=== PATIENT | female | born 1970 | race Caucasian/White ===

== ENCOUNTER → 2016-05-19 | Outpatient (REF) | payer OTHER ==
[~2016-05-19] MED LIST: BUSP10TA PO; EFFE150C PO; LIPI20TA PO; LOSA50TA20 PO; SERO200T PO; UROCTAB2 PO
[2016-05-19 12:31] LABS: CONTROL LINE HCG INT CTR LINE PRESENT
[2016-05-19 12:49] LABS: INR 0.86
== END | disposition home or self-care (01) ==
LOC: M LABDRWAD 12:15
PROVIDERS: ATTEND Physical Medicine & Rehabilitation
DX: Z01.812 Encounter for preprocedural laboratory examination (principal); M50.320 Other cervical disc degeneration, mid-cervical region, unspecified level

== ENCOUNTER → 2016-07-07 | Outpatient (REF) | payer OTHER | LOC: M LABDRWAD 12:36 | PROVIDERS: ATTEND Physical Medicine & Rehabilitation | DX: Z01.812 Encounter for preprocedural laboratory examination (principal); M50.220 Other cervical disc displacement, mid-cervical region, unspecified level ==

== ENCOUNTER → 2016-09-05 | Outpatient (REF) | payer OTHER | LOC: M LAB REF 17:13 | PROVIDERS: ATTEND Surgery | DX: R05 Cough (principal) ==

== ENCOUNTER → 2017-05-02 | Outpatient (REF) | payer OTHER | LOC: M LAB REF 19:00 | DX: M50.30 Other cervical disc degeneration, unspecified cervical region (principal) ==

== ENCOUNTER 2017-08-10 18:08 | Emergency (ER) | payer OTHER, MEDICAID ==
[2017-08-10] MEDS: IPRATROPIUM 0.5MG/ALBUTEROL 2.5MG INH SOL UD 3ML (DUONEB)(J7620) NEB (19:24)
[2017-08-10] MEDS: ASPIRIN 81 MG CHEW TABLET PO (19:41)
[2017-08-10 19:42] LABS: BASO # 0.1 10^3/uL (0.0-0.2); BASO % 0.7 % (0.0-1.0); EOS # 0.1 10^3/uL (0.0-0.50); EOS % 0.6 % (0.0-3.0); HEMATOCRIT 46.1 % (36.0-47.0); HEMOGLOBIN 15.6 g/dl (12.0-15.5); IMMATURE GRANULOCYTE % 0.4 % (0-3.0); LYMPH # 2.8 10^3/uL (1.5-4.5); LYMPH % 21.9 % (24.0-44.0); MEAN CORPUSCULAR HEMOGLOBIN 29.4 pg (27.0-33.0); MEAN CORPUSCULAR HGB CONC 33.8 g/dl (32.0-36.5); MEAN CORPUSCULAR VOLUME 86.8 fl (80.0-96.0); MONO # 0.9 10^3/uL (0.0-0.8); MONO % 6.7 % (0.0-5.0); NEUTROPHILS # 8.9 10^3/uL (1.8-7.7); NEUTROPHILS % 69.7 % (36.0-66.0); PLATELET COUNT, AUTOMATED 330 10^3/uL (150-450); RED BLOOD COUNT 5.31 10^6/uL (4.00-5.40); RED CELL DISTRIBUTION WIDTH 13.1 % (11.5-14.5); WHITE BLOOD COUNT 12.7 10^3/uL (4.0-10.0)
[2017-08-10] MEDS: ATENOLOL 25 MG TAB PO (19:42)
[2017-08-10] MEDS ORDERED: ISOVUE-370 76% 100ML VIAL (Q9967) As Ordered (20:11)
[2017-08-10 20:14] LABS: ANION GAP 7 MEQ/L (8-16); BLOOD UREA NITROGEN 10 MG/DL (7-18); CALCIUM LEVEL 9.1 MG/DL (8.5-10.1); CARBON DIOXIDE LEVEL 27 MEQ/L (21-32); CHLORIDE LEVEL 109 MEQ/L (98-107); CPK CREATINE PHOSPHOKINASE 82 U/L (26-192); CREATININE FOR GFR 0.62 MG/DL (0.55-1.30); GLOMERULAR FILTRATION RATE > 60.0 (>58); GLUCOSE, FASTING 97 MG/DL (70-100); POTASSIUM SERUM 4.1 MEQ/L (3.5-5.1); SODIUM LEVEL 143 MEQ/L (136-145); TROPONIN I < 0.02 NG/ML (< 0.10)
[2017-08-10 20:15] LABS: MB/CK RELATIVE INDEX 1.21 (< OR =4)
[2017-08-10] MEDS: methylPREDNISolone INJ 125 MG/2 ML VIAL (J2930) IV (21:43)
[2017-08-10] MEDS: DOXYCYCLINE HYCLATE 100 MG TAB PO (21:43)
== END 2017-08-10 22:00 | disposition home or self-care (01) ==
LOC: M ED 18:08
DX: J45.901 Unspecified asthma with (acute) exacerbation (principal); R00.0 Tachycardia, unspecified; I10 Essential (primary) hypertension; J44.9 Chronic obstructive pulmonary disease, unspecified; N17.9 Acute kidney failure, unspecified; F17.200 Nicotine dependence, unspecified, uncomplicated; Z88.5 Allergy status to narcotic agent
CPT/HCPCS: Q9967

== ENCOUNTER 2017-08-17 13:15 | Inpatient (IN) | payer MEDICAID, OTHER ==
[2017-08-17 14:08] LABS: HEMATOCRIT 48.4 % (36.0-47.0); HEMOGLOBIN 16.3 g/dl (12.0-15.5); MEAN CORPUSCULAR HEMOGLOBIN 29.4 pg (27.0-33.0); MEAN CORPUSCULAR HGB CONC 33.7 g/dl (32.0-36.5); MEAN CORPUSCULAR VOLUME 87.4 fl (80.0-96.0); PLATELET COUNT, AUTOMATED 324 10^3/uL (150-450); RED BLOOD COUNT 5.54 10^6/uL (4.00-5.40); RED CELL DISTRIBUTION WIDTH 13.2 % (11.5-14.5); WHITE BLOOD COUNT 12.7 10^3/uL (4.0-10.0)
[2017-08-17 14:47] LABS: AMPHETAMINES LEVEL URINE NEGATIVE (NEGATIVE); BARBITURATES URINE NEGATIVE (NEGATIVE); BENZODIAZEPINES URINE NEGATIVE (NEGATIVE); CANNABINOIDS URINE NEGATIVE (NEGATIVE); COCAINE METABOLITE URINE NEGATIVE (NEGATIVE); METHADONE URINE NEGATIVE (NEGATIVE); OPIATES URINE NEGATIVE (NEGATIVE); PHENCYCLIDINE URINE NEGATIVE (NEGATIVE)
[2017-08-17] MEDS ORDERED: hydrOXYzine 25 MG TAB PO (16:00)
[2017-08-17] MEDS ORDERED: MOM 30ML SUSPENSION UDC PO (16:00)
[2017-08-17] MEDS ORDERED: ACETAMINOPHEN TAB 650MG DOSE (2X325MG) PO (16:00)
[2017-08-17] MEDS ORDERED: MAALOX 30 ML SUSP *UDC PO (16:00)
[2017-08-17 16:52] LABS: ACETAMINOPHEN LEVEL < 2.0 UG/ML (10.0-30.0); ALBUMIN 3.6 GM/DL (3.2-5.2); ALBUMIN/GLOBULIN RATIO 1.38 (1.00-1.93); ALKALINE PHOSPHATASE 92 U/L (45-117); ALT/SGPT 33 U/L (12-78); ANION GAP 6 MEQ/L (8-16); AST/SGOT 13 U/L (7-37); BILIRUBIN,DIRECT 0.1 MG/DL (0.0-0.2); BILIRUBIN,TOTAL 0.4 MG/DL (0.2-1.0); BLOOD UREA NITROGEN 8 MG/DL (7-18); CALCIUM LEVEL 8.4 MG/DL (8.5-10.1); CARBON DIOXIDE LEVEL 30 MEQ/L (21-32); CHLORIDE LEVEL 107 MEQ/L (98-107); CREATININE FOR GFR 0.78 MG/DL (0.55-1.30); GLOMERULAR FILTRATION RATE > 60.0 (>58); GLUCOSE, FASTING 120 MG/DL (70-100); POTASSIUM SERUM 3.7 MEQ/L (3.5-5.1); SODIUM LEVEL 143 MEQ/L (136-145); THYROID STIMULATING HORMONE 0.128 uIU/ML (0.358-3.740); TOTAL PROTEIN 6.2 GM/DL (6.4-8.2)
[2017-08-17 17:00] LABS: ETHYL ALCOHOL (ETHANOL) < 0.003 % (0.000-0.010)
[2017-08-17] MEDS: ACETAMINOPHEN TAB 650MG DOSE (2X325MG) PO (17:45)
[2017-08-17] MEDS: ATENOLOL 50 MG TAB PO (17:45)
[2017-08-17] MEDS: **hydrALAZINE** 50 MG TAB PO (19:30)
[2017-08-17] MEDS: LORazepam 2 MG TAB PO (21:36)
[2017-08-17] MEDS: traZODone 50 MG TAB PO (22:55)
[2017-08-18 08:36] LABS: BASO # 0.1 10^3/uL (0.0-0.2); BASO % 0.8 % (0.0-1.0); EOS # 0.2 10^3/uL (0.0-0.50); HEMOGLOBIN 15.7 g/dl (12.0-15.5); IMMATURE GRANULOCYTE % 0.8 % (0-3.0); LYMPH # 2.9 10^3/uL (1.5-4.5); LYMPH % 32.2 % (24.0-44.0); MEAN CORPUSCULAR HEMOGLOBIN 29.1 pg (27.0-33.0); MEAN CORPUSCULAR HGB CONC 33.4 g/dl (32.0-36.5); MEAN CORPUSCULAR VOLUME 87.2 fl (80.0-96.0); MONO # 0.6 10^3/uL (0.0-0.8); MONO % 6.6 % (0.0-5.0); NEUTROPHILS # 5.2 10^3/uL (1.8-7.7); NEUTROPHILS % 57.6 % (36.0-66.0); PLATELET COUNT, AUTOMATED 335 10^3/uL (150-450); RED BLOOD COUNT 5.39 10^6/uL (4.00-5.40); RED CELL DISTRIBUTION WIDTH 13.2 % (11.5-14.5); WHITE BLOOD COUNT 9.1 10^3/uL (4.0-10.0)
[2017-08-18] MEDS: ATENOLOL 50 MG TAB PO (08:41)
[2017-08-18 09:05] LABS: CHOLESTEROL LEVEL 195 MG/DL (<200); FREE THYROXINE INDEX 4.6 % (1.3-4.8); HDL CHOLESTEROL 50 MG/DL (>40); LDL CHOLESTEROL 112.2 MG/DL (<100); NON-HDL-C 145 MG/DL; T UPTAKE 42 % (30-39); THYROID STIMULATING HORMONE 0.292 uIU/ML (0.358-3.740); TRIGLYCERIDES LEVEL 164 MG/DL (<150)
[2017-08-18] MEDS: PARoxetine 12.5 MG **CR** TAB PO (13:57)
[2017-08-18] MEDS: hydrOXYzine 50 MG TAB PO ×2 (14:30→21:39)
[2017-08-18] MEDS: lamoTRIgine 100MG TAB PO (21:39)
[2017-08-18] MEDS: traZODone 50 MG TAB PO (21:39)
[2017-08-18] MEDS: OLANZapine 5 MG TAB PO (21:39)
[2017-08-19] MEDS: ATENOLOL 50 MG TAB PO (08:47)
[2017-08-19] MEDS: PARoxetine 12.5 MG **CR** TAB PO (08:47)
[2017-08-19] MEDS: lamoTRIgine 100MG TAB PO ×2 (08:47→22:24)
[2017-08-19] MEDS: hydrOXYzine 50 MG TAB PO ×2 (13:35→22:24)
[2017-08-19] MEDS: OLANZapine 10 MG TAB PO (22:24)
[2017-08-19] MEDS: traZODone 100 MG TAB PO (22:24)
[2017-08-20] MEDS: ATENOLOL 50 MG TAB PO (08:40)
[2017-08-20] MEDS: PARoxetine 12.5 MG **CR** TAB PO (08:40)
[2017-08-20] MEDS: lamoTRIgine 100MG TAB PO ×2 (08:40→22:39)
[2017-08-20] MEDS: hydrOXYzine 50 MG TAB PO ×2 (15:43→22:39)
[2017-08-20] MEDS: traZODone 50 MG TAB PO (22:40)
[2017-08-20] MEDS: OLANZapine 5 MG TAB PO (22:40)
[2017-08-21] MEDS: lamoTRIgine 100MG TAB PO (08:25)
[2017-08-21] MEDS: PARoxetine 12.5 MG **CR** TAB PO (08:25)
[2017-08-21] MEDS: ATENOLOL 50 MG TAB PO (08:25)
[2017-08-21] MEDS: hydrOXYzine 50 MG TAB PO (11:32)
== END 2017-08-21 12:35 | disposition home or self-care (01) | DRG 881 ==
LOC: M ED 13:15 → M ED INP 15:47 → M PSY 20:05
DX: F32.9 Major depressive disorder, single episode, unspecified (principal); F41.1 Generalized anxiety disorder; F43.10 Post-traumatic stress disorder, unspecified; F17.210 Nicotine dependence, cigarettes, uncomplicated; E78.5 Hyperlipidemia, unspecified; I10 Essential (primary) hypertension; E03.9 Hypothyroidism, unspecified; G43.909 Migraine, unspecified, not intractable, without status migrainosus; Z87.442 Personal history of urinary calculi; E66.9 Obesity, unspecified; Z79.899 Other long term (current) drug therapy; Z91.14 Patient's other noncompliance with medication regimen; Z81.8 Family history of other mental and behavioral disorders; Z91.411 Personal history of adult psychological abuse; Z91.410 Personal history of adult physical and sexual abuse

== ENCOUNTER → 2017-09-19 | Outpatient (REF) | payer OTHER, MEDICAID ==
[2017-09-19 13:02] LABS: BASO # 0.1 10^3/uL (0.0-0.2); BASO % 0.7 % (0.0-1.0); EOS # 0.2 10^3/uL (0.0-0.50); EOS % 2.3 % (0.0-3.0); HEMATOCRIT 45.7 % (36.0-47.0); HEMOGLOBIN 15.3 g/dl (12.0-15.5); IMMATURE GRANULOCYTE % 0.2 % (0-3.0); LYMPH # 2.1 10^3/uL (1.5-4.5); MEAN CORPUSCULAR HEMOGLOBIN 29.5 pg (27.0-33.0); MEAN CORPUSCULAR HGB CONC 33.5 g/dl (32.0-36.5); MEAN CORPUSCULAR VOLUME 88.1 fl (80.0-96.0); MONO # 0.8 10^3/uL (0.0-0.8); MONO % 8.4 % (0.0-5.0); NEUTROPHILS # 6.2 10^3/uL (1.8-7.7); NEUTROPHILS % 66.4 % (36.0-66.0); PLATELET COUNT, AUTOMATED 331 10^3/uL (150-450); RED BLOOD COUNT 5.19 10^6/uL (4.00-5.40); RED CELL DISTRIBUTION WIDTH 13.6 % (11.5-14.5); WHITE BLOOD COUNT 9.4 10^3/uL (4.0-10.0)
[2017-09-19 13:40] LABS: ESTIMATED AVERAGE GLUCOSE 126 MG/DL (60-110)
[2017-09-19 13:43] LABS: ALBUMIN 3.5 GM/DL (3.2-5.2); ALBUMIN/GLOBULIN RATIO 1.25 (1.00-1.93); ALKALINE PHOSPHATASE 128 U/L (45-117); ALT/SGPT 16 U/L (12-78); ANION GAP 7 MEQ/L (8-16); AST/SGOT 10 U/L (7-37); BILIRUBIN,TOTAL 0.2 MG/DL (0.2-1.0); BLOOD UREA NITROGEN 13 MG/DL (7-18); CALCIUM LEVEL 8.6 MG/DL (8.5-10.1); CARBON DIOXIDE LEVEL 26 MEQ/L (21-32); CHLORIDE LEVEL 107 MEQ/L (98-107); CHOLESTEROL LEVEL 238 MG/DL (<200); CHOLESTEROL RISK RATIO 5.409 (<5); CREATININE FOR GFR 0.74 MG/DL (0.55-1.30); FERRITIN 40 NG/ML (8-252); FREE T4 1.27 NG/DL (0.76-1.46); GLOMERULAR FILTRATION RATE > 60.0 (>58); GLUCOSE, FASTING 152 MG/DL (70-100); HDL CHOLESTEROL 44 MG/DL (>40); IRON (FE) 73 UG/DL (50-170); LDL CHOLESTEROL 155.6 MG/DL (<100); NON-HDL-C 194 MG/DL; SODIUM LEVEL 140 MEQ/L (136-145); THYROID STIMULATING HORMONE 0.923 uIU/ML (0.358-3.740); TOTAL PROTEIN 6.3 GM/DL (6.4-8.2); TRIGLYCERIDES LEVEL 192 MG/DL (<150)
== END ==
LOC: M LAB REF 12:50
DX: D72.829 Elevated white blood cell count, unspecified (principal); I73.9 Peripheral vascular disease, unspecified; I10 Essential (primary) hypertension

== ENCOUNTER → 2017-11-03 | Outpatient (CLI) | payer OTHER, MEDICAID | LOC: M PAIN 10:00 | DX: M79.1 Myalgia (principal); M54.5 Low back pain; G89.29 Other chronic pain; M54.2 Cervicalgia; M46.1 Sacroiliitis, not elsewhere classified; E11.9 Type 2 diabetes mellitus without complications; F31.9 Bipolar disorder, unspecified; I10 Essential (primary) hypertension; E03.9 Hypothyroidism, unspecified; E78.00 Pure hypercholesterolemia, unspecified; F17.200 Nicotine dependence, unspecified, uncomplicated; Z79.899 Other long term (current) drug therapy; Z88.5 Allergy status to narcotic agent; Z86.79 Personal history of other diseases of the circulatory system | CPT/HCPCS: G0463 ==

== ENCOUNTER → 2017-11-15 | Outpatient (CLI) | payer OTHER, MEDICAID ==
[~2017-11-15] MED LIST changes: +BUPIVACAINE HCL 0.25% 10 ML VIAL As Ordered; +BUPIVACAINE HCL 0.25% 30 ML VIAL As Ordered; -BUSP10TA PO; -EFFE150C PO; -LIPI20TA PO; -LOSA50TA20 PO; -SERO200T PO; +TRIAMCINOLONE ACETONIDE SUSP 40 MG/ML VIAL (J3301) As Ordered; -UROCTAB2 PO; +diazePAM 5 MG TAB As Ordered; +oxyCODONE 5MG TAB As Ordered
== END ==
LOC: M PAIN 10:00
DX: G89.29 Other chronic pain (principal); M79.1 Myalgia; M54.5 Low back pain; E11.9 Type 2 diabetes mellitus without complications; F31.9 Bipolar disorder, unspecified; I10 Essential (primary) hypertension; E03.9 Hypothyroidism, unspecified; E78.00 Pure hypercholesterolemia, unspecified; F17.200 Nicotine dependence, unspecified, uncomplicated; Z79.84 Long term (current) use of oral hypoglycemic drugs; Z79.899 Other long term (current) drug therapy; Z88.5 Allergy status to narcotic agent; Z86.79 Personal history of other diseases of the circulatory system
CPT/HCPCS: J3301

== ENCOUNTER → 2017-11-30 | Outpatient (CLI) | payer OTHER, MEDICAID | LOC: M PAIN 13:45 | DX: M79.1 Myalgia (principal); M54.5 Low back pain; M54.2 Cervicalgia; I10 Essential (primary) hypertension; E78.00 Pure hypercholesterolemia, unspecified; E03.9 Hypothyroidism, unspecified; F31.9 Bipolar disorder, unspecified; F17.210 Nicotine dependence, cigarettes, uncomplicated; Z79.84 Long term (current) use of oral hypoglycemic drugs; Z79.899 Other long term (current) drug therapy; Z88.5 Allergy status to narcotic agent | CPT/HCPCS: G0463 ==

== ENCOUNTER → 2017-12-27 | Outpatient (CLI) | payer OTHER, MEDICAID | LOC: M PAIN 13:45 | DX: G89.29 Other chronic pain (principal); M79.1 Myalgia; M25.511 Pain in right shoulder; M25.512 Pain in left shoulder; M54.5 Low back pain; F31.9 Bipolar disorder, unspecified; I10 Essential (primary) hypertension; E11.9 Type 2 diabetes mellitus without complications; E03.9 Hypothyroidism, unspecified; E78.00 Pure hypercholesterolemia, unspecified; M48.07 Spinal stenosis, lumbosacral region; F17.200 Nicotine dependence, unspecified, uncomplicated; Z79.84 Long term (current) use of oral hypoglycemic drugs; Z79.899 Other long term (current) drug therapy; Z88.5 Allergy status to narcotic agent; Z86.79 Personal history of other diseases of the circulatory system | CPT/HCPCS: J3301 ==

== ENCOUNTER 2018-01-01 12:11 | Inpatient (IN) | payer MEDICAID, OTHER ==
[2018-01-01 13:00] LABS: HEMATOCRIT 47.7 % (36.0-47.0); MEAN CORPUSCULAR HEMOGLOBIN 29.1 pg (27.0-33.0); MEAN CORPUSCULAR HGB CONC 33.5 g/dl (32.0-36.5); MEAN CORPUSCULAR VOLUME 86.7 fl (80.0-96.0); PLATELET COUNT, AUTOMATED 369 10^3/uL (150-450); RED CELL DISTRIBUTION WIDTH 13.5 % (11.5-14.5); WHITE BLOOD COUNT 10.7 10^3/uL (4.0-10.0)
[2018-01-01] MEDS: ALPRAZolam 0.5 MG TAB PO (13:41)
[2018-01-01 14:27] LABS: ALBUMIN 3.7 GM/DL (3.2-5.2); ALKALINE PHOSPHATASE 127 U/L (45-117); ALT/SGPT 20 U/L (12-78); ANION GAP 10 MEQ/L (8-16); AST/SGOT 9 U/L (7-37); BILIRUBIN,DIRECT 0.1 MG/DL (0.0-0.2); BILIRUBIN,TOTAL 0.4 MG/DL (0.2-1.0); BLOOD UREA NITROGEN 10 MG/DL (7-18); CALCIUM LEVEL 8.7 MG/DL (8.5-10.1); CARBON DIOXIDE LEVEL 25 MEQ/L (21-32); CHLORIDE LEVEL 110 MEQ/L (98-107); CREATININE FOR GFR 0.68 MG/DL (0.55-1.30); ETHYL ALCOHOL (ETHANOL) < 0.003 % (0.000-0.010); GLOMERULAR FILTRATION RATE > 60.0 (>58); POTASSIUM SERUM 3.8 MEQ/L (3.5-5.1); SALICYLATE LEVEL 4.1 MG/DL (5.0-30.0); SODIUM LEVEL 145 MEQ/L (136-145); THYROID STIMULATING HORMONE 0.177 uIU/ML (0.358-3.740); TOTAL PROTEIN 6.6 GM/DL (6.4-8.2)
[2018-01-01 14:57] LABS: ACETAMINOPHEN LEVEL < 2.0 UG/ML (10.0-30.0); GLUCOSE, FASTING 139 MG/DL (70-100)
[2018-01-01 15:20] LABS: ALBUMIN/GLOBULIN RATIO 0.44 (1.00-1.93)
[2018-01-01 17:48] LABS: AMPHETAMINES LEVEL URINE NEGATIVE (NEGATIVE); BARBITURATES URINE NEGATIVE (NEGATIVE); BENZODIAZEPINES URINE POSITIVE (NEGATIVE); CANNABINOIDS URINE NEGATIVE (NEGATIVE)
[2018-01-01 17:49] LABS: COCAINE METABOLITE URINE NEGATIVE (NEGATIVE); METHADONE URINE NEGATIVE (NEGATIVE); OPIATES URINE NEGATIVE (NEGATIVE); PHENCYCLIDINE URINE NEGATIVE (NEGATIVE)
[2018-01-01] MEDS ORDERED: MAALOX 30 ML SUSP *UDC PO (18:00)
[2018-01-01] MEDS ORDERED: MOM 30ML SUSPENSION UDC PO (18:00)
[2018-01-01] MEDS: LORazepam 1 MG TAB PO (19:21)
[2018-01-01] MEDS: ACETAMINOPHEN TAB 650MG DOSE (2X325MG) PO (21:50)
[2018-01-01] MEDS ORDERED: ALBUTEROL 90 MCG/ACT 8GM HFA INHALER INH (22:15)
[2018-01-01] MEDS: OLANZapine 5 MG TAB PO (23:03)
[2018-01-01] MEDS: traZODone 50 MG TAB PO (23:03)
[2018-01-01] MEDS: lamoTRIgine 25 MG TAB PO (23:03)
[2018-01-01] MEDS: GABAPENTIN 300 MG CAP PO (23:03)
[2018-01-01] MEDS: ATORVASTATIN 20 MG TAB PO (23:04)
[2018-01-02] MEDS: GABAPENTIN 300 MG CAP PO ×3 (08:30→21:39)
[2018-01-02] MEDS: metFORMIN XR 500MG TAB *GLUCOPHAGE XR PO (08:31)
[2018-01-02] MEDS: lamoTRIgine 25 MG TAB PO ×2 (08:31→21:40)
[2018-01-02] MEDS: ATENOLOL 50 MG TAB PO (08:31)
[2018-01-02] MEDS: amLODIPine 10 MG TAB PO (08:31)
[2018-01-02] MEDS: PARoxetine 10MG TABLET PO (08:31)
[2018-01-02] MEDS: hydrOXYzine 50 MG TAB PO ×2 (13:15→21:40)
[2018-01-02] MEDS: OLANZapine 5 MG TAB PO (21:39)
[2018-01-02] MEDS: OLANZapine ORAL DISINTEGRATING TAB 5MG PO (21:40)
[2018-01-02] MEDS: ATORVASTATIN 20 MG TAB PO (21:40)
[2018-01-02] MEDS: traZODone 50 MG TAB PO (21:40)
[2018-01-03 07:26] LABS: HEMATOCRIT 44.5 % (36.0-47.0); HEMOGLOBIN 14.7 g/dl (12.0-15.5); MEAN CORPUSCULAR HEMOGLOBIN 28.8 pg (27.0-33.0); MEAN CORPUSCULAR VOLUME 87.1 fl (80.0-96.0); PLATELET COUNT, AUTOMATED 310 10^3/uL (150-450); RED BLOOD COUNT 5.11 10^6/uL (4.00-5.40); RED CELL DISTRIBUTION WIDTH 13.4 % (11.5-14.5); WHITE BLOOD COUNT 10.8 10^3/uL (4.0-10.0)
[2018-01-03] MEDS: metFORMIN XR 500MG TAB *GLUCOPHAGE XR PO (08:09)
[2018-01-03] MEDS: ATENOLOL 50 MG TAB PO (08:09)
[2018-01-03] MEDS: PARoxetine 20 MG TAB PO (08:10)
[2018-01-03] MEDS: amLODIPine 10 MG TAB PO (08:10)
[2018-01-03] MEDS: lamoTRIgine 25 MG TAB PO (08:10)
[2018-01-03] MEDS: GABAPENTIN 300 MG CAP PO ×2 (08:10→16:03)
[2018-01-03 08:16] LABS: ALBUMIN 3.2 GM/DL (3.2-5.2); ALBUMIN/GLOBULIN RATIO 1.28 (1.00-1.93); ALKALINE PHOSPHATASE 108 U/L (45-117); ALT/SGPT 17 U/L (12-78); ANION GAP 5 MEQ/L (8-16); AST/SGOT 8 U/L (7-37); BILIRUBIN,TOTAL 0.2 MG/DL (0.2-1.0); BLOOD UREA NITROGEN 15 MG/DL (7-18); CALCIUM LEVEL 8.6 MG/DL (8.5-10.1); CARBON DIOXIDE LEVEL 30 MEQ/L (21-32); CHLORIDE LEVEL 110 MEQ/L (98-107); CREATININE FOR GFR 0.71 MG/DL (0.55-1.30); GLOMERULAR FILTRATION RATE > 60.0 (>58); GLUCOSE, FASTING 98 MG/DL (70-100); POTASSIUM SERUM 3.9 MEQ/L (3.5-5.1); SODIUM LEVEL 145 MEQ/L (136-145); T UPTAKE 36 % (30-39); THYROID STIMULATING HORMONE 0.087 uIU/ML (0.358-3.740); THYROXINE (T4) 11.1 UG/DL (4.5-12.0); TOTAL PROTEIN 5.7 GM/DL (6.4-8.2)
[2018-01-03] MEDS: hydrOXYzine 50 MG TAB PO (13:00)
== END 2018-01-03 16:10 | disposition home or self-care (01) | DRG 751 ==
LOC: M ED 12:11 → M ED INP 17:54 → M PSY 21:04
DX: F33.9 Major depressive disorder, recurrent, unspecified (principal); F41.1 Generalized anxiety disorder; I10 Essential (primary) hypertension; J44.9 Chronic obstructive pulmonary disease, unspecified; E11.9 Type 2 diabetes mellitus without complications; J45.909 Unspecified asthma, uncomplicated; E78.5 Hyperlipidemia, unspecified; G47.00 Insomnia, unspecified; E66.9 Obesity, unspecified; Z68.35 Body mass index [BMI] 35.0-35.9, adult; M54.9 Dorsalgia, unspecified; F17.210 Nicotine dependence, cigarettes, uncomplicated; Z88.5 Allergy status to narcotic agent; Z91.14 Patient's other noncompliance with medication regimen; Z79.84 Long term (current) use of oral hypoglycemic drugs; Z79.899 Other long term (current) drug therapy

== ENCOUNTER 2018-01-19 11:44 | Emergency (ER) | payer OTHER, MEDICAID ==
[2018-01-19] MEDS: NS 1,000 ML IV (12:00)
[2018-01-19] MEDS ORDERED: LABETALOL HCL 100 MG/20 ML VIAL IV (12:23)
[2018-01-19 12:25] LABS: BASO # 0.1 10^3/uL (0.0-0.2); BASO % 0.7 % (0.0-1.0); EOS # 0.2 10^3/uL (0.0-0.50); EOS % 1.7 % (0.0-3.0); HEMATOCRIT 45.4 % (36.0-47.0); HEMOGLOBIN 15.2 g/dl (12.0-15.5); IMMATURE GRANULOCYTE % 0.4 % (0-3.0); LYMPH # 2.1 10^3/uL (1.5-4.5); LYMPH % 22.3 % (24.0-44.0); MEAN CORPUSCULAR HGB CONC 33.5 g/dl (32.0-36.5); MEAN CORPUSCULAR VOLUME 86.6 fl (80.0-96.0); MONO # 0.6 10^3/uL (0.0-0.8); MONO % 6.7 % (0.0-5.0); NEUTROPHILS # 6.4 10^3/uL (1.8-7.7); NEUTROPHILS % 68.2 % (36.0-66.0); PLATELET COUNT, AUTOMATED 295 10^3/uL (150-450); RED BLOOD COUNT 5.24 10^6/uL (4.00-5.40); RED CELL DISTRIBUTION WIDTH 13.7 % (11.5-14.5); WHITE BLOOD COUNT 9.4 10^3/uL (4.0-10.0)
[2018-01-19 12:37] LABS: CONTROL LINE HCG INT CTR LINE PRESENT; HCG, SERUM QUALITATIVE NEGATIVE (NEGATIVE)
[2018-01-19 12:52] LABS: ANION GAP 8 MEQ/L (8-16); BLOOD UREA NITROGEN 8 MG/DL (7-18); CALCIUM LEVEL 8.8 MG/DL (8.5-10.1); CARBON DIOXIDE LEVEL 26 MEQ/L (21-32); CHLORIDE LEVEL 107 MEQ/L (98-107); CPK CREATINE PHOSPHOKINASE 63 U/L (26-192); CREATININE FOR GFR 0.58 MG/DL (0.55-1.30); GLOMERULAR FILTRATION RATE > 60.0 (>58); GLUCOSE, FASTING 124 MG/DL (70-100); MAGNESIUM LEVEL 1.8 MG/DL (1.8-2.4); MB/CK RELATIVE INDEX 2.06 (< OR =4); POTASSIUM SERUM 3.8 MEQ/L (3.5-5.1); SODIUM LEVEL 141 MEQ/L (136-145); THYROID STIMULATING HORMONE 0.778 uIU/ML (0.358-3.740); TROPONIN I < 0.02 NG/ML (< 0.10)
[2018-01-23 00:07] LABS: LAMOTRIGINE (LAMICTAL) 2.3 ug/mL (2.0-20.0)
== END 2018-01-19 13:55 | disposition home or self-care (01) ==
LOC: M ED 11:44
DX: R55 Syncope and collapse (principal); R94.31 Abnormal electrocardiogram [ECG] [EKG]; E11.9 Type 2 diabetes mellitus without complications; I10 Essential (primary) hypertension; J45.909 Unspecified asthma, uncomplicated; F17.200 Nicotine dependence, unspecified, uncomplicated; Z87.448 Personal history of other diseases of urinary system; Z88.5 Allergy status to narcotic agent; Z79.899 Other long term (current) drug therapy; Z79.84 Long term (current) use of oral hypoglycemic drugs
CPT/HCPCS: 70450

== ENCOUNTER → 2019-01-17 | Outpatient (REF) | payer OTHER ==
[~2019-01-17] MED LIST changes: +ALBU83IN; +AMLO10TA5 PO; +ATEN50TA2 PO; +ATOR1TAB21 PO; -BUPIVACAINE HCL 0.25% 10 ML VIAL As Ordered; -BUPIVACAINE HCL 0.25% 30 ML VIAL As Ordered; +BUSP10TA PO; +DOXY-350 PO; +DOXY100T PO; +EFFE150C2 PO; +EFFE75CA2 PO; +GABA-843 PO; +HYDR-3713 PO; +HYDR1TAB33 PO; +LAMI1TAB7 PO; +LAMO100T PO; +LAMO100T80 PO; +LIPI20TA PO; +LOSA50TA88 PO; +METF-791 PO; +OLAN15TA PO; +OLAN5TAB PO; +PARO12.5 PO; +PARO20TA3 PO; +PAXI20TA29 PO; +PRED10TA2 PO; +SERO200T PO; +TIZA2TA PO; +TRAZ-252 PO; +TRAZ1TAB10 PO; -TRIAMCINOLONE ACETONIDE SUSP 40 MG/ML VIAL (J3301) As Ordered; +UROCTAB2 PO; +VENTAER INH; +ZYPR1INJ IM; -diazePAM 5 MG TAB As Ordered; -oxyCODONE 5MG TAB As Ordered
[2019-01-17 15:52] LABS: PLATELET COUNT, AUTOMATED 328 10^3/uL (150-450)
[2019-01-17 16:02] LABS: INR 0.92; PROTHROMBIN TIME 12.1 SECONDS (11.8-14.0)
[2019-01-17 16:03] LABS: PARTIAL THROMBOPLASTIN TIME 29.6 SECONDS (25.0-38.4)
== END ==
LOC: M LABDRWAD 14:44
PROVIDERS: ATTEND Physician Assistant
DX: Z01.812 Encounter for preprocedural laboratory examination (principal)

== ENCOUNTER → 2019-03-29 | Outpatient (REF) | payer OTHER, MEDICAID ==
[~2019-03-29] MED LIST changes: -LAMO100T PO; +LAMO100T3 PO
[2019-03-29 18:01] LABS: BASO # 0.1 10^3/uL (0.0-0.2); EOS # 0.2 10^3/uL (0.0-0.5); EOS % 1.7 % (0.0-3.0); HEMATOCRIT 50.5 % (36.0-47.0); LYMPH # 2.1 10^3/uL (1.5-5.0); LYMPH % 20.8 % (24.0-44.0); MEAN CORPUSCULAR HEMOGLOBIN 29.3 pg (27.0-33.0); MEAN CORPUSCULAR HGB CONC 31.7 g/dl (32.0-36.5); MEAN CORPUSCULAR VOLUME 92.3 fl (80.0-96.0); MONO # 0.8 10^3/uL (0.0-0.8); NEUTROPHILS # 6.7 10^3/uL (1.5-8.5); PLATELET COUNT, AUTOMATED 351 10^3/uL (150-450); RED BLOOD COUNT 5.47 10^6/uL (4.00-5.40); WHITE BLOOD COUNT 9.9 10^3/uL (4.0-10.0)
[2019-03-29 18:18] LABS: ALBUMIN 3.6 GM/DL (3.2-5.2); ALT/SGPT 47 U/L (12-78); BILIRUBIN,TOTAL 0.3 MG/DL (0.2-1.0); BLOOD UREA NITROGEN 9 MG/DL (7-18); CALCIUM LEVEL 8.7 MG/DL (8.5-10.1); CARBON DIOXIDE LEVEL 27 MEQ/L (21-32); CHLORIDE LEVEL 106 MEQ/L (98-107); CHOLESTEROL LEVEL 192 MG/DL (<200); CREATININE FOR GFR 0.73 MG/DL (0.55-1.30); GLOMERULAR FILTRATION RATE > 60.0 (>58); GLUCOSE, FASTING 155 MG/DL (70-100); HDL CHOLESTEROL 48 MG/DL (>40); HEMOGLOBIN A1c 6.3 %; LDL CHOLESTEROL 122 MG/DL (<100); NON-HDL-C 144 MG/DL; POTASSIUM SERUM 4.3 MEQ/L (3.5-5.1); SODIUM LEVEL 140 MEQ/L (136-145); THYROID STIMULATING HORMONE 0.628 uIU/ML (0.358-3.740); TOTAL PROTEIN 6.4 GM/DL (6.4-8.2); TRIGLYCERIDES LEVEL 110 MG/DL (<150)
== END ==
LOC: M LAB REF 17:37
PROVIDERS: ATTEND Nurse Practitioner Family
DX: Z00.01 Encounter for general adult medical examination with abnormal findings (principal)

== ENCOUNTER → 2020-12-08 | Outpatient (CLI) | payer OTHER ==
[~2020-12-08] MED LIST changes: -AMLO10TA5 PO; +AMLO1TAB25 PO; +GABA-282 PO; -GABA-843 PO; -METF-791 PO; +METF-838 PO; -OLAN15TA PO; +OLAN15TA13 PO; +OLAN1TAB16 PO; -OLAN5TAB PO; -PARO12.5 PO; +PARO12.510 PO
--- NOTE | 2020-12-08 17:33 | REP ---
INDICATION: EDEMA. COMPARISON: None. TECHNIQUE: Multiple ultrasonographic images of the deep venous structures of the right lower extremity were obtained from the inguinal ligament to the ankle. Venous compression techniques, color doppler imaging, and augmentation techniques were also obtained where appropriate. As per the ACR guidelines the anterior tibial vein can not be effectively evaluated. Only compression techniques in the calf on the peroneal and posterior tibial veins was attempted/performed. FINDINGS: There is no abnormal echogenic material seen within any of the visualized deep venous structures that would suggest acute thrombosis. Coaptation is unremarkable throughout. Doppler interrogation shows an expected response to respiratory variability and augmentation in the thigh. Compression techniques in the calf showed no abnormality. The color flow images show what appears to be a normal vascular pattern throughout the thigh. IMPRESSION: There is no ultrasonographic evidence of deep venous thrombosis involving any of the visualized deep venous structures of the right lower extremity as described above. <Electronically signed by Nolan Chung > 12/08/20 [id number]
== END ==
LOC: M RAD 16:58
PROVIDERS: ATTEND Physician Assistant
DX: R22.41 Localized swelling, mass and lump, right lower limb (principal)

== ENCOUNTER → 2021-03-02 | Outpatient (REF) | payer OTHER ==
[2021-03-02 17:49] LABS: RSV AMPLIFICATION POSITIVE (NEGATIVE)
== END ==
LOC: M LAB REF 16:11
PROVIDERS: ATTEND Physician Assistant Medical
DX: R50.9 Fever, unspecified (principal); R05.9 Cough, unspecified

== ENCOUNTER 2021-07-05 16:04 | Emergency (ER) | payer OTHER ==
[~2021-07-05 16:04] MED LIST changes: +LOSA50TA28 PO; -LOSA50TA88 PO; -PARO12.510 PO; +PARO12.56 PO
[2021-07-05] MEDS ORDERED: METH-1164 (16:13)
[2021-07-05] MEDS ORDERED: NAPR-885 (16:13)
[2021-07-05] MEDS ORDERED: LAMO150T3 (16:13)
[2021-07-05] MEDS ORDERED: PARO5TAB (16:13)
[2021-07-05] MEDS ORDERED: NS 1,000 ML IV ONE (18:25)
[2021-07-05] MEDS ORDERED: KETOROLAC 30 MG/ML 1ML VIAL IV ONE (18:25)
[2021-07-05 19:06] LABS: BASO # 0.1 10^3/uL (0.0-0.2); EOS # 0.3 10^3/uL (0.0-0.5); EOS % 2.9 % (0.0-3.0); HEMATOCRIT 40.9 % (36.0-47.0); HEMOGLOBIN 13.1 g/dl (12.0-15.5); LYMPH # 2.4 10^3/uL (1.5-5.0); LYMPH % 24.9 % (24.0-44.0); MEAN CORPUSCULAR HEMOGLOBIN 26.3 pg (27.0-33.0); MEAN CORPUSCULAR VOLUME 82.1 fl (80.0-96.0); MONO # 0.7 10^3/uL (0.0-0.8); MONO % 7.3 % (2.0-8.0); NEUTROPHILS # 6.1 10^3/uL (1.5-8.5); NEUTROPHILS % 63.7 % (36.0-66.0); PLATELET COUNT, AUTOMATED 349 10^3/uL (150-450); RED BLOOD COUNT 4.98 10^6/uL (4.00-5.40); WHITE BLOOD COUNT 9.6 10^3/uL (4.0-10.0)
[2021-07-05 19:36] LABS: BLOOD UREA NITROGEN 12 MG/DL (7-18); CALCIUM LEVEL 8.5 MG/DL (8.5-10.1); CARBON DIOXIDE LEVEL 27 MEQ/L (21-32); CHLORIDE LEVEL 108 MEQ/L (98-107); CREATININE FOR GFR 0.66 MG/DL (0.55-1.30); GLOMERULAR FILTRATION RATE > 60.0 (>58); GLUCOSE, FASTING 89 MG/DL (70-100); POTASSIUM SERUM 4.1 MEQ/L (3.5-5.1); SODIUM LEVEL 139 MEQ/L (136-145)
[2021-07-05] MEDS ORDERED: CIPROFLOXACIN 500MG TABLET PO ONE (20:10)
[2021-07-05] MEDS ORDERED: CIPR-249 PO (20:14)
[2021-07-05 20:30] VITALS: BP 162/86
== END 2021-07-05 20:34 | disposition home or self-care (01) ==
LOC: M ED 16:04
DX: N10 Acute pyelonephritis (principal); N20.0 Calculus of kidney; K40.21 Bilateral inguinal hernia, without obstruction or gangrene, recurrent; M48.061 Spinal stenosis, lumbar region without neurogenic claudication; I25.10 Atherosclerotic heart disease of native coronary artery without angina pectoris; E11.9 Type 2 diabetes mellitus without complications; I10 Essential (primary) hypertension; F17.200 Nicotine dependence, unspecified, uncomplicated; Z88.6 Allergy status to analgesic agent; Z79.899 Other long term (current) drug therapy
CPT/HCPCS: 74176; 80048; 81001; 85025; 87088; 87186; 96361; 96374; 99284; J1885

== ENCOUNTER → 2021-08-04 | Outpatient (CLI) | payer MEDICAID, OTHER ==
[~2021-08-04] MED LIST changes: +BUSP15TA47 PO; +CIPR-249 PO; +LAMO150T3; +METH-1164; +NAPR-885; +PARO5TAB
== END ==
LOC: M LABSMTC 10:47
PROVIDERS: ATTEND Anesthesiology
DX: Z01.818 Encounter for other preprocedural examination (principal); Z11.52 Encounter for screening for COVID-19

== ENCOUNTER 2021-08-09 10:37 | Day surgery (SDC) | payer OTHER ==
[~2021-08-09] VITALS: Ht 160 cm; Wt 82.6 kg
[~2021-08-09 10:37] MED LIST changes: +LR 1,000 ML IV ONE; +ceFAZolin SOD 2 GM in IV 1 EA IV ONE
[2021-08-09] MEDS ORDERED: propofoL 200 MG/20 ML VIAL As Ordered ONE (11:53)
[2021-08-09] MEDS ORDERED: LIDOCAINE 2% 100MG/5ML SDV (FOR ANES.) As Ordered ONE (11:53)
[2021-08-09] MEDS ORDERED: fentaNYL 100 MCG/2 ML INJECTION As Ordered ONE ×2 (11:54→12:47)
[2021-08-09] MEDS ORDERED: MIDAZOLAM INJ 2MG/2ML VIAL (J2250 PER 1MG) As Ordered ONE (11:54)
[2021-08-09] MEDS ORDERED: ISOVUE-300 61% 50ML VIAL As Ordered ONE (11:56)
[2021-08-09] MEDS ORDERED: ONDANSETRON 4MG/2ML VIAL As Ordered ONE (12:37)
[2021-08-09] MEDS ORDERED: dexameTHASONE 4 MG/ML 1ML VIAL (J1100 PER 1MG) As Ordered ONE (12:37)
[2021-08-09] MEDS ORDERED: ACETAMINOPHEN 1000MG 100ML IV BTL (OFIRMEV) (J0131 PER 10MG) As Ordered ONE (12:48)
[2021-08-09] MEDS ORDERED: HYDR-3713 PO (13:21)
[2021-08-09] MEDS ORDERED: BACT800T5 PO (13:21)
[2021-08-09] MEDS ORDERED: OXYB5TAB10 PO (13:21)
[2021-08-09] MEDS ORDERED: PYRI1TAB5 PO (13:21)
[2021-08-09] MEDS ORDERED: ONDANSETRON 4MG/2ML VIAL IV PRN (13:30)
[2021-08-09] MEDS ORDERED: oxyCODONE 5MG TAB PO PRN (13:30)
[2021-08-09] MEDS ORDERED: fentaNYL 100 MCG/2 ML INJECTION IV PRN (13:30)
[2021-08-09] MEDS ORDERED: LR 1,000 ML IV SCH (13:30)
[2021-08-09 14:32] VITALS: BP 145/81
[2021-08-12 19:07] LABS: CA Oxalate Dihy 95 % (.); Size 2x1 mm (.)
== END 2021-08-09 14:57 | disposition home or self-care (01) ==
LOC: M SDC 10:37
PROVIDERS: ATTEND Urology
DX: N20.0 Calculus of kidney (principal); N12 Tubulo-interstitial nephritis, not specified as acute or chronic; Z88.5 Allergy status to narcotic agent
CPT/HCPCS: 52356; 74420; 81025; 82365; C1769; C1894; C2617; J0131; J0690; J1100; J2250; J2405; J3010; Q9967

== ENCOUNTER → 2021-08-24 | Outpatient (REF) | payer OTHER, MEDICAID ==
[~2021-08-24] MED LIST changes: +BACT800T5 PO; -LR 1,000 ML IV ONE; +OXYB5TAB10 PO; +PYRI1TAB5 PO; -ceFAZolin SOD 2 GM in IV 1 EA IV ONE
== END ==
LOC: M SMT 12:52
PROVIDERS: ATTEND Urology
DX: Z96.0 Presence of urogenital implants (principal)

== ENCOUNTER → 2021-09-10 | Outpatient (CLI) | payer OTHER ==
[~2021-09-10] MED LIST changes: +OLAN15TA13; +TRAZ1TAB14
[2021-09-10 11:03] LABS: HEMATOCRIT 50.6 % (36.0-47.0); MEAN CORPUSCULAR HEMOGLOBIN 27.2 pg (27.0-33.0); MEAN CORPUSCULAR HGB CONC 31.6 g/dl (32.0-36.5); MEAN CORPUSCULAR VOLUME 86.1 fl (80.0-96.0); PLATELET COUNT, AUTOMATED 337 10^3/uL (150-450); RED BLOOD COUNT 5.88 10^6/uL (4.00-5.40); WHITE BLOOD COUNT 9.9 10^3/uL (4.0-10.0)
[2021-09-10 11:20] LABS: ALBUMIN 3.6 GM/DL (3.2-5.2); ALT/SGPT 15 U/L (12-78); BILIRUBIN,TOTAL 0.2 MG/DL (0.2-1.0); BLOOD UREA NITROGEN 10 MG/DL (7-18); CALCIUM LEVEL 9.5 MG/DL (8.5-10.1); CARBON DIOXIDE LEVEL 27 MEQ/L (21-32); CHLORIDE LEVEL 106 MEQ/L (98-107); CREATININE FOR GFR 0.75 MG/DL (0.55-1.30); GLOMERULAR FILTRATION RATE > 60.0 (>58); GLUCOSE, FASTING 136 MG/DL (70-100); POTASSIUM SERUM 4.7 MEQ/L (3.5-5.1); SODIUM LEVEL 140 MEQ/L (136-145); TOTAL PROTEIN 7.1 GM/DL (6.4-8.2)
== END ==
LOC: M LAB 09:55
PROVIDERS: ATTEND Urology
DX: Z96.0 Presence of urogenital implants (principal)

== ENCOUNTER → 2021-09-10 | Outpatient (CLI) | payer OTHER, MEDICAID | LOC: M LABSMTC 10:22 | PROVIDERS: ATTEND Anesthesiology | DX: Z01.812 Encounter for preprocedural laboratory examination (principal); Z20.822 Contact with and (suspected) exposure to COVID-19 ==

== ENCOUNTER 2021-09-15 10:58 | Day surgery (SDC) | payer OTHER ==
[~2021-09-15] VITALS: Ht 160 cm; Wt 82.1 kg
[~2021-09-15 10:58] MED LIST changes: +ALBU2.5V10; -ALBU83IN; +CIPROFLOXACIN 400 MG in IV 1 EA IV ONE
[2021-09-15] MEDS ORDERED: INSULIN LISPRO (NovoLOG) PER UNIT SC PRN ×2 (11:25→14:00)
[2021-09-15] MEDS ORDERED: LR 1,000 ML IV SCH ×2 (11:25→14:00)
[2021-09-15] MEDS ORDERED: dexameTHASONE 4 MG/ML 1ML VIAL (J1100 PER 1MG) As Ordered ONE (12:54)
[2021-09-15] MEDS ORDERED: ONDANSETRON 4MG/2ML VIAL As Ordered ONE (12:54)
[2021-09-15] MEDS ORDERED: MIDAZOLAM INJ 2MG/2ML VIAL (J2250 PER 1MG) As Ordered ONE (12:54)
[2021-09-15] MEDS ORDERED: ACETAMINOPHEN 1000MG 100ML IV BTL (OFIRMEV) (J0131 PER 10MG) As Ordered ONE (12:54)
[2021-09-15] MEDS ORDERED: fentaNYL 100 MCG/2 ML INJECTION As Ordered ONE ×2 (12:54→13:43)
[2021-09-15] MEDS ORDERED: propofoL 200 MG/20 ML VIAL As Ordered ONE (12:54)
[2021-09-15] MEDS ORDERED: LIDOCAINE 2% 100MG/5ML SDV (FOR ANES.) As Ordered ONE (12:54)
[2021-09-15] MEDS ORDERED: METOCLOPRAMIDE INJ 10MG/2ML VIAL (J2765 PER 1) As Ordered ONE (12:55)
[2021-09-15] MEDS ORDERED: ISOVUE-300 61% 50ML VIAL As Ordered ONE (13:58)
[2021-09-15] MEDS ORDERED: oxyCODONE 5MG TAB PO PRN (14:00)
[2021-09-15] MEDS ORDERED: HYDROMORPHONE HCL 0.5 MG/ 0.5 ML SYRINGE (J1170 PER 1) IV PRN (14:00)
[2021-09-15] MEDS ORDERED: METOCLOPRAMIDE INJ 10MG/2ML VIAL (J2765 PER 1) IV PRN (14:00)
[2021-09-15] MEDS ORDERED: ONDANSETRON 4MG/2ML VIAL IV PRN (14:00)
[2021-09-15] MEDS ORDERED: fentaNYL 100 MCG/2 ML INJECTION IV PRN (14:00)
[2021-09-15] MEDS ORDERED: BACT800T5 PO (14:04)
[2021-09-15] MEDS ORDERED: OXYB5TAB10 PO (14:04)
[2021-09-15] MEDS ORDERED: PYRI1TAB5 PO (14:04)
[2021-09-15] MEDS ORDERED: HYDR-3713 PO (14:04)
[2021-09-15] MEDS ORDERED: ALBUTEROL SULFATE 2.5 MG/0.5 ML INH NEB SOLN NEB ONE (14:25)
[2021-09-15 15:00] VITALS: BP 126/69
[2021-09-22 17:10] LABS: CA Oxalate Dihy 100 % (.); Size 2x1 mm (.)
== END 2021-09-15 15:15 | disposition home or self-care (01) ==
LOC: M SDC 10:58
PROVIDERS: ATTEND Urology
DX: N20.0 Calculus of kidney (principal); J44.9 Chronic obstructive pulmonary disease, unspecified; E11.9 Type 2 diabetes mellitus without complications; E03.9 Hypothyroidism, unspecified; E78.5 Hyperlipidemia, unspecified; I10 Essential (primary) hypertension; F31.9 Bipolar disorder, unspecified; F41.9 Anxiety disorder, unspecified; F32.A Depression, unspecified; Z79.84 Long term (current) use of oral hypoglycemic drugs; Z79.899 Other long term (current) drug therapy; Z79.51 Long term (current) use of inhaled steroids; F17.220 Nicotine dependence, chewing tobacco, uncomplicated
CPT/HCPCS: 52356; 74420; 81025; 82365; C2617; J0131; J0744; J1100; J2250; J2405; J2765; J3010; Q9967

== ENCOUNTER 2022-05-02 18:58 | Inpatient (IN) | payer MEDICAID, OTHER ==
[~2022-05-02] VITALS: Ht 160 cm; Wt 76.3 kg
[~2022-05-02 18:58] MED LIST changes: -CIPROFLOXACIN 400 MG in IV 1 EA IV ONE; -DOXY-350 PO; +DOXY-444 PO; -PAXI20TA29 PO; +PAXI20TA30 PO
[2022-05-02] MEDS ORDERED: hydrOXYzine 50 MG TAB PO ONE (20:55)
[2022-05-02 21:21] LABS: HEMATOCRIT 45.9 % (36.0-47.0); MEAN CORPUSCULAR HEMOGLOBIN 28.6 pg (27.0-33.0); MEAN CORPUSCULAR HGB CONC 32.7 g/dl (32.0-36.5); MEAN CORPUSCULAR VOLUME 87.4 fl (80.0-96.0); PLATELET COUNT, AUTOMATED 359 10^3/uL (150-450); RED BLOOD COUNT 5.25 10^6/uL (4.00-5.40); WHITE BLOOD COUNT 9.2 10^3/uL (4.0-10.0)
[2022-05-02 21:30] LABS: AMPHETAMINES LEVEL URINE NEGATIVE (NEGATIVE); BENZODIAZEPINES URINE NEGATIVE (NEGATIVE)
[2022-05-02 21:31] LABS: BARBITURATES URINE NEGATIVE (NEGATIVE); COCAINE METABOLITE URINE NEGATIVE (NEGATIVE); METHADONE URINE NEGATIVE (NEGATIVE); OPIATES URINE NEGATIVE (NEGATIVE); PHENCYCLIDINE URINE NEGATIVE (NEGATIVE)
[2022-05-02 21:32] LABS: CANNABINOIDS URINE POSITIVE (NEGATIVE)
[2022-05-02 21:45] LABS: ETHYL ALCOHOL (ETHANOL) 0.004 % (0.000-0.010)
[2022-05-02 21:46] LABS: ACETAMINOPHEN LEVEL < 2.0 UG/ML (10.0-20.0); BILIRUBIN,DIRECT 0.1 MG/DL (<0.4); SALICYLATE LEVEL < 3.0 MG/DL (<30)
[2022-05-02 21:47] LABS: ALBUMIN 3.6 G/DL (3.2-5.2); ALKALINE PHOSPHATASE 103 U/L (46-116); ALT/SGPT 20 U/L (7.0-40); AST/SGOT 16 U/L (<34); BILIRUBIN,TOTAL 0.3 MG/DL (0.3-1.2); BLOOD UREA NITROGEN 6 MG/DL (9-23); CALCIUM LEVEL 9.3 MG/DL (8.5-10.1); CARBON DIOXIDE LEVEL 29 MMOL/L (20-31); CHLORIDE LEVEL 106 MMOL/L (98-107); CREATININE FOR GFR 0.62 MG/DL (0.55-1.30); GLOMERULAR FILTRATION RATE > 60.0 (>58); GLUCOSE, FASTING 95 MG/DL (60-100); SODIUM LEVEL 141 MMOL/L (136-145); TOTAL PROTEIN 6.5 G/DL (5.7-8.2)
[2022-05-02 21:50] LABS: THYROID STIMULATING HORMONE 0.452 uIU/ML (0.55-4.78)
[2022-05-02 22:02] LABS: RSV AMPLIFICATION NEGATIVE (NEGATIVE)
[2022-05-02] MEDS ORDERED: LORazepam 0.5 MG TAB PO ONE (22:35)
[2022-05-03] MEDS ORDERED: TRAZ1TAB14 PO (00:59)
[2022-05-03] MEDS ORDERED: LAMO150T3 PO (00:59)
[2022-05-03] MEDS ORDERED: OLAN15TA13 PO (00:59)
[2022-05-03] MEDS ORDERED: PAXI10TA13 PO (00:59)
[2022-05-03] MEDS ORDERED: HOME MED LIST COMPLETE! XX SCH (01:00)
[2022-05-03] MEDS ORDERED: ACETAMINOPHEN TAB 650MG DOSE (2X325MG) PO ONE (09:00)
[2022-05-03] MEDS: PARoxetine 10MG TABLET PO SCH (09:00)
[2022-05-03] MEDS ORDERED: LORazepam 0.5 MG TAB PO ONE (09:05)
[2022-05-03] MEDS ORDERED: ACETAMINOPHEN TAB 650MG DOSE (2X325MG) PO PRN (13:25)
[2022-05-03] MEDS ORDERED: traZODone 50 MG TAB PO PRN (13:25)
[2022-05-03] MEDS ORDERED: MAALOX 30 ML SUSP *UDC PO PRN (13:25)
[2022-05-03] MEDS ORDERED: MOM 30ML SUSPENSION UDC PO PRN (13:25)
[2022-05-03] MEDS: lamoTRIgine 25MG TAB PO SCH (14:00)
[2022-05-03 15:32] VITALS: BP 135/81
[2022-05-03] MEDS: NICOTINE 21MG/24HR 1 EA TRANSDERMAL TD PRN (18:33)
[2022-05-03] MEDS: ARIPiprazole 2 MG TAB PO SCH (20:20)
[2022-05-04 06:06] VITALS: BP 132/70
[2022-05-04] MEDS: lamoTRIgine 25MG TAB PO SCH (09:15)
[2022-05-04] MEDS: PARoxetine 10MG TABLET PO SCH (09:15)
[2022-05-04] MEDS: NICOTINE 21MG/24HR 1 EA TRANSDERMAL TD PRN (09:51)
[2022-05-04] MEDS ORDERED: traZODone 50 MG TAB PO PRN (11:05)
[2022-05-04] MEDS: busPIRone 5 MG TAB PO SCH ×2 (12:33→21:12)
[2022-05-04] MEDS: metFORMIN XR 500MG TAB *GLUCOPHAGE XR PO SCH (12:34)
[2022-05-04] MEDS: ATORVASTATIN 20 MG TAB PO SCH (12:34)
[2022-05-04] MEDS: atenoloL 25 MG TAB PO SCH (12:35)
[2022-05-04 18:35] VITALS: BP 98/67
[2022-05-04] MEDS: ARIPiprazole 2 MG TAB PO SCH (21:12)
[2022-05-05 06:36] VITALS: BP 118/63
[2022-05-05 06:58] LABS: CHOLESTEROL RISK RATIO 4.1 (<5); HDL CHOLESTEROL 42.9 MG/DL (>40); LDL CHOLESTEROL 100.5 MG/DL (<100)
[2022-05-05] MEDS: NICOTINE 21MG/24HR 1 EA TRANSDERMAL TD PRN (07:57)
[2022-05-05] MEDS: metFORMIN XR 500MG TAB *GLUCOPHAGE XR PO SCH (07:58)
[2022-05-05] MEDS: busPIRone 5 MG TAB PO SCH ×2 (07:58→20:10)
[2022-05-05] MEDS: lamoTRIgine 25MG TAB PO SCH (07:58)
[2022-05-05] MEDS: ATORVASTATIN 20 MG TAB PO SCH (07:58)
[2022-05-05] MEDS: PARoxetine 10MG TABLET PO SCH (07:58)
[2022-05-05] MEDS: atenoloL 25 MG TAB PO SCH (07:59)
[2022-05-05] MEDS ORDERED: QUEtiapine FUMARATE 25 MG TAB PO PRN (10:50)
[2022-05-05] MEDS ORDERED: PARoxetine 10MG TABLET PO ONE (19:00)
[2022-05-05 19:32] VITALS: BP 116/77
[2022-05-05] MEDS ORDERED: ARIPiprazole 10 MG TAB PO SCH (21:00)
[2022-05-06 06:29] VITALS: BP 120/74
[2022-05-06] MEDS: NICOTINE 21MG/24HR 1 EA TRANSDERMAL TD PRN (09:11)
[2022-05-06 09:13] VITALS: BP 129/89
[2022-05-06] MEDS: metFORMIN XR 500MG TAB *GLUCOPHAGE XR PO SCH (09:13)
[2022-05-06] MEDS: ATORVASTATIN 20 MG TAB PO SCH (09:13)
[2022-05-06] MEDS: busPIRone 5 MG TAB PO SCH (09:13)
[2022-05-06] MEDS: atenoloL 25 MG TAB PO SCH (09:13)
[2022-05-06] MEDS: lamoTRIgine 25MG TAB PO SCH (09:13)
[2022-05-06] MEDS ORDERED: PARO5TAB PO (11:09)
[2022-05-06] MEDS ORDERED: TRAZ1TAB14 PO (11:09)
[2022-05-06] MEDS ORDERED: HYDR-3363 PO (11:09)
[2022-05-06] MEDS ORDERED: LAMI25TA PO (11:09)
[2022-05-06] MEDS ORDERED: BUSP15TA47 PO (11:09)
[2022-05-06] MEDS ORDERED: ABIL10TA9 PO (11:09)
[2022-05-06] MEDS ORDERED: NICO21PAT TD (11:09)
[2022-05-06] MEDS ORDERED: QUET1TAB17 PO (11:09)
[2022-05-06] MEDS ORDERED: PARoxetine 10MG TABLET PO SCH (21:00)
== END 2022-05-06 13:10 | disposition home or self-care (01) | DRG 753 ==
LOC: M ED 18:58 → M ED INP 05-03 13:21 → M PSY 05-03 15:29
PROVIDERS: ADMIT Student in an Organized Health Care Education/Training Program; ATTEND Student in an Organized Health Care Education/Training Program
DX: F31.9 Bipolar disorder, unspecified (principal); E11.9 Type 2 diabetes mellitus without complications; I10 Essential (primary) hypertension; F41.1 Generalized anxiety disorder; F43.20 Adjustment disorder, unspecified; M48.00 Spinal stenosis, site unspecified; J44.9 Chronic obstructive pulmonary disease, unspecified; Z62.810 Personal history of physical and sexual abuse in childhood; Z62.811 Personal history of psychological abuse in childhood; Z91.411 Personal history of adult psychological abuse; Z91.410 Personal history of adult physical and sexual abuse; Z79.899 Other long term (current) drug therapy; Z79.84 Long term (current) use of oral hypoglycemic drugs; Z81.8 Family history of other mental and behavioral disorders; Z88.5 Allergy status to narcotic agent

== ENCOUNTER 2023-11-05 14:28 | Inpatient (IN) | payer MEDICAID, SELFPAY ==
[~2023-11-05] VITALS: Ht 160 cm; Wt 80.0 kg
[~2023-11-05 14:28] MED LIST changes: +ABIL10TA9 PO; +DOXY-440 PO; -DOXY-444 PO; -EFFE150C2 PO; +EFFE150C3 PO; +HYDR-3363 PO; +KETO10TAB PO; +LAMI25TA PO; +LAMO150T3 PO; +LIDO5DIS41 TOP; +NICO21PAT TD; -OXYB5TAB10 PO; +OXYB5TAB14 PO; +PARO5TAB PO; +PAXI10TA13 PO; +QUET1TAB17 PO; +TRAZ1TAB14 PO
[2023-11-05] MEDS: NS 1,000 ML IV ONE ×2 (15:22→17:26)
[2023-11-05] MEDS: ONDANSETRON 4MG 2ML VIAL IV ONE (15:22)
[2023-11-05] MEDS: MORPHINE 4 MG/ML 1ML VIAL IV ONE (15:22)
[2023-11-05 15:27] LABS: BASO # 0.1 10^3/uL (0.0-0.2); BASO % 0.4 % (0.0-1.0); EOS # 0.3 10^3/uL (0.0-0.5); EOS % 1.3 % (0.0-3.0); HEMATOCRIT 42.6 % (36.0-47.0); HEMOGLOBIN 14.2 g/dl (12.0-15.5); LYMPH # 1.1 10^3/uL (1.5-5.0); LYMPH % 5.6 % (24.0-44.0); MEAN CORPUSCULAR HEMOGLOBIN 28.2 pg (27.0-33.0); MEAN CORPUSCULAR HGB CONC 33.3 g/dl (32.0-36.5); MEAN CORPUSCULAR VOLUME 84.7 fl (80.0-96.0); MONO # 1.2 10^3/uL (0.0-0.8); MONO % 6.1 % (2.0-8.0); NEUTROPHILS # 16.8 10^3/uL (1.5-8.5); PLATELET COUNT, AUTOMATED 453 10^3/uL (150-450); RED BLOOD COUNT 5.03 10^6/uL (4.00-5.40); WHITE BLOOD COUNT 19.5 10^3/uL (4.0-10.0)
[2023-11-05 15:33] LABS: ERYTHROCYTE SEDIMENTATION RATE 61 mm/hr (0-30)
[2023-11-05] MEDS: PIPERACILLIN/TAZOBACTAM SOD 4.5 GM in D5W MINI-BAG PLUS 50 ML IV ONE (16:12)
[2023-11-05] MEDS ORDERED: IBUP-1022 PO (16:30)
[2023-11-05] MEDS ORDERED: ISOVUE-370 76% 100ML VIAL As Ordered ONE (16:43)
[2023-11-05] MEDS ORDERED: LIDOCAINE W/EPINEPHRINE 1% 20ML VIAL As Ordered ONE (18:42)
[2023-11-05] MEDS ORDERED: LIDOCAINE 2% 100MG/5ML SDV (FOR ANES.) As Ordered ONE (19:00)
[2023-11-05] MEDS ORDERED: propofoL 200 MG/20 ML VIAL As Ordered ONE (19:00)
[2023-11-05] MEDS ORDERED: fentaNYL 250 MCG/5 ML INJECTION As Ordered ONE (19:00)
[2023-11-05] MEDS ORDERED: SUCCINYLCHOLINE 100MG/5ML SYRINGE As Ordered ONE (19:01)
[2023-11-05] MEDS ORDERED: MIDAZOLAM INJ 2MG/2ML VIAL As Ordered ONE (19:01)
[2023-11-05] MEDS ORDERED: PHENYLephrine 500MCG 5ML (100MCG/ML) SYRINGE As Ordered ONE (19:22)
[2023-11-05] MEDS ORDERED: ACETAMINOPHEN 1000MG 100ML IV BAG As Ordered ONE (19:41)
[2023-11-05] MEDS ORDERED: ONDANSETRON 4MG 2ML VIAL As Ordered ONE (19:41)
[2023-11-05] MEDS ORDERED: MEPERIDINE 25 MG/ML 1ML VIAL IV PRN (20:05)
[2023-11-05] MEDS ORDERED: ONDANSETRON 4MG 2ML VIAL IV PRN (20:05)
[2023-11-05] MEDS ORDERED: fentaNYL 100 MCG/2 ML INJECTION IV PRN (20:05)
[2023-11-05] MEDS ORDERED: diphenhydrAMINE 50MG/ML VIAL IV PRN (20:05)
[2023-11-05] MEDS ORDERED: METOCLOPRAMIDE INJ 10MG/2ML VIAL IV PRN (20:05)
[2023-11-05] MEDS ORDERED: MOM 30ML SUSPENSION UDC PO PRN (20:15)
[2023-11-05] MEDS ORDERED: ACETAMINOPHEN TAB 650MG DOSE (2X325MG) PO PRN (20:15)
[2023-11-05 21:00] VITALS: BP 124/75; TEMP 97.2; O2SAT 95
[2023-11-05] MEDS ORDERED: ANEXSIA, NORCO 7.5MG/325MG TABLET(HYDROCODONE/APAP) PO PRN (21:15)
[2023-11-05 21:30] VITALS: BP 121/75; TEMP 97.5; O2SAT 95
[2023-11-05 22:00] VITALS: BP 123/79; TEMP 97.5; O2SAT 95
[2023-11-05] MEDS: AMPICILLIN SOD/SULBACTAM SOD 3 GM in D5W MINI-BAG PLUS 100 ML IV SCH (22:05)
[2023-11-05] MEDS: LR 1,000 ML IV SCH (22:05)
[2023-11-05 23:00] VITALS: BP 126/75; TEMP 97.7; O2SAT 94
[2023-11-05] MEDS ORDERED: PIPERACILLIN/TAZOBACTAM SOD 3.375 GM in D5W MINI-BAG PLUS 50 ML IV SCH (23:40)
[2023-11-06] VITALS (7 sets, daily range): BP systolic 108–152; BP diastolic 59–87; TEMP 97.2–97.7; O2SAT 91–97
[2023-11-06] MEDS: PIPERACILLIN/TAZOBACTAM SOD 3.375 GM in D5W MINI-BAG PLUS 50 ML IV SCH (05:00)
[2023-11-06 07:51] LABS: HEMATOCRIT 38.4 % (36.0-47.0); HEMOGLOBIN 12.3 g/dl (12.0-15.5); MEAN CORPUSCULAR HEMOGLOBIN 27.8 pg (27.0-33.0); MEAN CORPUSCULAR VOLUME 86.7 fl (80.0-96.0); PLATELET COUNT, AUTOMATED 432 10^3/uL (150-450); RED BLOOD COUNT 4.43 10^6/uL (4.00-5.40)
[2023-11-06 08:01] LABS: INR 1.05; PROTHROMBIN TIME 13.4 SECONDS (12.5-14.5)
[2023-11-06 08:14] LABS: ALKALINE PHOSPHATASE 193 U/L (46-116); ALT/SGPT 27 U/L (7.0-40); AST/SGOT 13 U/L (<34); BILIRUBIN,TOTAL 0.2 MG/DL (0.3-1.2); BLOOD UREA NITROGEN 12 MG/DL (9-23); CALCIUM LEVEL 8.4 MG/DL (8.5-10.1); CARBON DIOXIDE LEVEL 28 MMOL/L (20-31); CHLORIDE LEVEL 106 MMOL/L (98-107); CHOLESTEROL LEVEL 157 MG/DL (<200); CHOLESTEROL RISK RATIO 5.45 (<5); CREATININE FOR GFR 0.59 MG/DL (0.55-1.30); GLOMERULAR FILTRATION RATE > 60.0 (>51); GLUCOSE, FASTING 204 MG/DL (60-100); HDL CHOLESTEROL 28.8 MG/DL (>40); LDL CHOLESTEROL 103.8 MG/DL (<100); MAGNESIUM LEVEL 1.5 MG/DL (1.8-2.4); NON-HDL-C 128.2 MG/DL; POTASSIUM SERUM 3.7 MMOL/L (3.5-5.1); SODIUM LEVEL 139 MMOL/L (136-145); TRIGLYCERIDES LEVEL 122 MG/DL (<150)
[2023-11-06 08:15] LABS: HEMOGLOBIN A1c 6.3 % (4.0-6.0)
[2023-11-06] MEDS: ENOXAPARIN 40MG/0.4ML SYRINGE (J1650 PER 10MG) SC SCH (08:34)
[2023-11-06] MEDS ORDERED: DEXTROSE 50% 50ML SYRINGE IV PRN (08:55)
[2023-11-06] MEDS ORDERED: GLUCAGON INJ 1MG VIAL SC PRN (08:55)
[2023-11-06] MEDS ORDERED: GLUCOSE 4 GM CHEW PO PRN (08:55)
[2023-11-06] MEDS: MAG SULF 1GM/100ML (MAG RUN) 1 GM in IV 1 EA IV ONE (09:21)
[2023-11-06] MEDS: MAGNESIUM OXIDE 400MG TAB (MAG-OX) PO SCH (09:22)
[2023-11-06] MEDS: PERCOCET 5MG/325MG TAB PO PRN ×2 (09:24→15:38)
[2023-11-06] MEDS: INSULIN LISPRO (NovoLOG) PER UNIT SC SCH ×2 (13:46→21:00)
[2023-11-06 15:56] LABS: PROCALCITONIN 0.07 ng/ml
[2023-11-06] MEDS ORDERED: MULT-180 PO (16:56)
[2023-11-06] MEDS ORDERED: HOME MED LIST COMPLETE! XX SCH (17:00)
[2023-11-07] VITALS: BP 156/83; TEMP 97.5; O2SAT 96
[2023-11-07 03:27] VITALS: BP 155/82; TEMP 97.7; O2SAT 97
[2023-11-07 06:46] LABS: HEMATOCRIT 35.3 % (36.0-47.0); HEMOGLOBIN 11.6 g/dl (12.0-15.5); MEAN CORPUSCULAR HEMOGLOBIN 28.2 pg (27.0-33.0); MEAN CORPUSCULAR HGB CONC 32.9 g/dl (32.0-36.5); MEAN CORPUSCULAR VOLUME 85.7 fl (80.0-96.0); PLATELET COUNT, AUTOMATED 385 10^3/uL (150-450); RED BLOOD COUNT 4.12 10^6/uL (4.00-5.40)
[2023-11-07 07:16] LABS: BASO # 0.1 10^3/uL (0.0-0.2); BASO % 0.7 % (0.0-1.0); EOS # 0.2 10^3/uL (0.0-0.5); EOS % 1.9 % (0.0-3.0); LYMPH # 1.8 10^3/uL (1.5-5.0); LYMPH % 21.1 % (24.0-44.0); MONO # 0.7 10^3/uL (0.0-0.8); MONO % 8.5 % (2.0-8.0); NEUTROPHILS # 5.8 10^3/uL (1.5-8.5); NEUTROPHILS % 66.7 % (36.0-66.0)
[2023-11-07 07:32] LABS: ALKALINE PHOSPHATASE 150 U/L (46-116); ALT/SGPT 35 U/L (7.0-40); AST/SGOT 14 U/L (<34); BILIRUBIN,TOTAL 0.2 MG/DL (0.3-1.2); BLOOD UREA NITROGEN 10 MG/DL (9-23); CARBON DIOXIDE LEVEL 30 MMOL/L (20-31); CHLORIDE LEVEL 108 MMOL/L (98-107); CREATININE FOR GFR 0.52 MG/DL (0.55-1.30); GLOMERULAR FILTRATION RATE > 60.0 (>51); GLUCOSE, FASTING 145 MG/DL (60-100); MAGNESIUM LEVEL 1.5 MG/DL (1.8-2.4); POTASSIUM SERUM 3.5 MMOL/L (3.5-5.1); SODIUM LEVEL 143 MMOL/L (136-145); TOTAL PROTEIN 4.7 G/DL (5.7-8.2)
[2023-11-07 08:00] VITALS: BP 156/84; TEMP 97.2; O2SAT 95
[2023-11-07] MEDS: MAG SULF 1GM/100ML (MAG RUN) 1 GM in IV 1 EA IV SCH (11:48)
[2023-11-07 12:00] VITALS: BP 157/85; TEMP 97.3; O2SAT 95
[2023-11-07 19:04] LABS: HEPATITIS B SURFACE ANTIGEN NEGATIVE (NEGATIVE)
[2023-11-07 19:17] LABS: HIV 1&2 SCREEN NEGATIVE (NEGATIVE)
[2023-11-07 19:26] LABS: HEPATITIS C VIRUS ABY INDEX < 0.02 INDEX (<0.8)
[2023-11-07 20:10] VITALS: BP 158/82; TEMP 97.7; O2SAT 95
[2023-11-07] MEDS: MAGNESIUM OXIDE 400MG TAB (MAG-OX) PO SCH (21:13)
[2023-11-07] MEDS: RAMELTEON 8 MG TAB (ROZEREM) PO PRN (23:46)
[2023-11-08 03:22] VITALS: BP 164/82; TEMP 97.2; O2SAT 97
[2023-11-08 07:18] LABS: BLOOD UREA NITROGEN 6 MG/DL (9-23); CALCIUM LEVEL 8.1 MG/DL (8.5-10.1); CARBON DIOXIDE LEVEL 33 MMOL/L (20-31); CHLORIDE LEVEL 104 MMOL/L (98-107); CREATININE FOR GFR 0.55 MG/DL (0.55-1.30); GLOMERULAR FILTRATION RATE > 60.0 (>51); GLUCOSE, FASTING 126 MG/DL (60-100); MAGNESIUM LEVEL 1.7 MG/DL (1.8-2.4); POTASSIUM SERUM 3.3 MMOL/L (3.5-5.1); SODIUM LEVEL 141 MMOL/L (136-145)
[2023-11-08 08:00] VITALS: BP 158/90; TEMP 97.2; O2SAT 95
[2023-11-08] MEDS: MAG SULF 1GM/100ML (MAG RUN) 1 GM in IV 1 EA IV ONE (09:21)
[2023-11-08] MEDS: POTASSIUM CHLORIDE 10MEQ SR TABLET PO ONE (09:22)
[2023-11-08 12:00] VITALS: BP 153/87; TEMP 97.8; O2SAT 98
[2023-11-08] MEDS: amLODIPine 5 MG TAB PO SCH (13:26)
[2023-11-08 19:59] VITALS: BP 152/83; TEMP 97.2; O2SAT 98
[2023-11-09 00:46] VITALS: BP 156/85; TEMP 97.3; O2SAT 98
[2023-11-09 04:00] VITALS: BP 163/89; TEMP 97.3; O2SAT 95
[2023-11-09 06:57] LABS: BASO # 0.1 10^3/uL (0.0-0.2); BASO % 0.9 % (0.0-1.0); EOS # 0.3 10^3/uL (0.0-0.5); EOS % 3.1 % (0.0-3.0); HEMOGLOBIN 12.8 g/dl (12.0-15.5); LYMPH # 2.2 10^3/uL (1.5-5.0); LYMPH % 27.4 % (24.0-44.0); MEAN CORPUSCULAR HGB CONC 32.8 g/dl (32.0-36.5); MEAN CORPUSCULAR VOLUME 85.3 fl (80.0-96.0); MONO # 0.8 10^3/uL (0.0-0.8); MONO % 9.8 % (2.0-8.0); NEUTROPHILS # 4.6 10^3/uL (1.5-8.5); NEUTROPHILS % 56.8 % (36.0-66.0); PLATELET COUNT, AUTOMATED 437 10^3/uL (150-450); RED BLOOD COUNT 4.57 10^6/uL (4.00-5.40)
[2023-11-09 07:33] LABS: BLOOD UREA NITROGEN 10 MG/DL (9-23); CALCIUM LEVEL 8.4 MG/DL (8.5-10.1); CARBON DIOXIDE LEVEL 31 MMOL/L (20-31); CHLORIDE LEVEL 106 MMOL/L (98-107); CREATININE FOR GFR 0.65 MG/DL (0.55-1.30); GLOMERULAR FILTRATION RATE > 60.0 (>51); GLUCOSE, FASTING 144 MG/DL (60-100); MAGNESIUM LEVEL 1.8 MG/DL (1.8-2.4); SODIUM LEVEL 142 MMOL/L (136-145)
[2023-11-09 08:03] VITALS: BP 148/88; TEMP 97.2; O2SAT 96
[2023-11-09 08:07] VITALS: BP 148/88
[2023-11-09] MEDS: LINEZOLID 600MG TABLET (ZYVOX) PO SCH (11:21)
[2023-11-09 12:00] VITALS: BP 157/92; TEMP 97.2; O2SAT 96
[2023-11-09 16:00] VITALS: BP 158/96; TEMP 97.2; O2SAT 98
[2023-11-09 16:17] LABS: HEPATITIS B SURF AB QUANT < 5 mIU/mL (> OR = 10)
[2023-11-09] MEDS: MUPIROCIN 2% OINT 22 GM TUBE TOP SCH (17:38)
[2023-11-09] MEDS ORDERED: AMLO1TAB24 PO (17:39)
[2023-11-09] MEDS ORDERED: MUPI2OI TOP (17:39)
[2023-11-09] MEDS ORDERED: PERCOCET PO (17:39)
[2023-11-09] MEDS ORDERED: LINE1TAB6 PO (17:39)
[2023-11-09 17:43] LABS: HEPATITIS B CORE ANTIBODY IGG NON-REACTIVE (NON-REACTIVE)
[2023-11-09] MEDS ORDERED: LINEZOLID 600MG TABLET (ZYVOX) PO SCH (21:00)
[2023-11-13 16:56] LABS: IMMUNOGLOBULIN A 262.3 MG/DL (40-350); IMMUNOGLOBULIN G 645 MG/DL (650-1600)
== END 2023-11-09 18:35 | disposition home or self-care (01) | DRG 710 ==
LOC: M ED 14:28 → M SDC 18:43 → M MSPAV 20:56
PROVIDERS: ADMIT Internal Medicine; ATTEND Student in an Organized Health Care Education/Training Program
PROC: 0W960ZZ Drainage of Neck, Open Approach (ICD-10-PCS; principal; 2023-11-05 18:30)
DX: A41.9 Sepsis, unspecified organism (principal); N39.0 Urinary tract infection, site not specified; I10 Essential (primary) hypertension; E83.42 Hypomagnesemia; E11.9 Type 2 diabetes mellitus without complications; B96.20 Unspecified Escherichia coli [E. coli] as the cause of diseases classified elsewhere; L02.11 Cutaneous abscess of neck; F41.9 Anxiety disorder, unspecified; M60.88 Other myositis, other site; J45.909 Unspecified asthma, uncomplicated; Z88.5 Allergy status to narcotic agent; F17.200 Nicotine dependence, unspecified, uncomplicated; B95.0 Streptococcus, group A, as the cause of diseases classified elsewhere

== ENCOUNTER 2024-06-07 10:08 | Emergency (ER) | payer BC, MEDICAID ==
[~2024-06-07] VITALS: Ht 160 cm; Wt 65.9 kg
[~2024-06-07 10:08] MED LIST changes: +AMLO1TAB24 PO; +GABA-1172 PO; -GABA-282 PO; +IBUP-1022 PO; +LINE1TAB6 PO; +MULT-180 PO; +MUPI2OI TOP; -OLAN15TA13; -OLAN15TA13 PO; +OLAN15TA69; +OLAN15TA69 PO; +PERCOCET PO
[2024-06-07] MEDS ORDERED: ZITHTAB PO (16:49)
[2024-06-07] MEDS ORDERED: PRED20TA PO (16:49)
[2024-06-07 16:59] VITALS: BP 116/69; TEMP 97.6; O2SAT 96
== END 2024-06-07 17:16 | disposition home or self-care (01) ==
LOC: M ED 10:08
DX: J44.1 Chronic obstructive pulmonary disease with (acute) exacerbation (principal); B34.9 Viral infection, unspecified; E11.9 Type 2 diabetes mellitus without complications; I10 Essential (primary) hypertension; E78.5 Hyperlipidemia, unspecified; F17.210 Nicotine dependence, cigarettes, uncomplicated; Z88.5 Allergy status to narcotic agent; Z79.1 Long term (current) use of non-steroidal anti-inflammatories (NSAID); Z79.2 Long term (current) use of antibiotics; Z79.52 Long term (current) use of systemic steroids; Z79.899 Other long term (current) drug therapy

== ENCOUNTER 2024-06-20 11:39 | Emergency (ER) | payer OTHER ==
[~2024-06-20] VITALS: Ht 160 cm; Wt 70.0 kg
[~2024-06-20 11:39] MED LIST changes: +PRED20TA PO; +ZITHTAB PO
[2024-06-20 13:42] LABS: BASO # 0.1 10^3/uL (0.0-0.2); BASO % 0.4 % (0.0-1.0); EOS # 0.1 10^3/uL (0.0-0.5); EOS % 0.7 % (0.0-3.0); HEMATOCRIT 50.9 % (36.0-47.0); HEMOGLOBIN 16.3 g/dl (12.0-15.5); LYMPH # 1.6 10^3/uL (1.5-5.0); LYMPH % 10.6 % (24.0-44.0); MEAN CORPUSCULAR HEMOGLOBIN 29.5 pg (27.0-33.0); MONO # 1.2 10^3/uL (0.0-0.8); MONO % 7.5 % (2.0-8.0); NEUTROPHILS # 12.4 10^3/uL (1.5-8.5); PLATELET COUNT, AUTOMATED 319 10^3/uL (150-450); RED BLOOD COUNT 5.53 10^6/uL (4.00-5.40); WHITE BLOOD COUNT 15.5 10^3/uL (4.0-10.0)
[2024-06-20 13:56] LABS: KETONE, URINE AUTO RFX NEGATIVE (NEGATIVE); LEUKOCYTE ESTERASE UR AUTO RFX NEGATIVE (NEGATIVE); MUCUS, URINE RFX SMALL (NEGATIVE); NITRITE, URINE AUTO RFX NEGATIVE (NEGATIVE); RBC, URINE AUTO RFX 1 /HPF (0-3); SQUAM EPITHELIAL CELL UR AURFX 1 /HPF (0-6); WBC, URINE AUTO RFX 0 /HPF (0-3)
[2024-06-20 14:11] LABS: LIPASE 23 U/L (12-53)
[2024-06-20 14:12] LABS: ALBUMIN 3.6 G/DL (3.2-5.2); ALKALINE PHOSPHATASE 125 U/L (35-104); ALT/SGPT 35 U/L (7.0-40); AST/SGOT 17 U/L (<34); BILIRUBIN,DIRECT < 0.1 MG/DL (<0.4); BILIRUBIN,TOTAL 0.5 MG/DL (0.3-1.2); BLOOD UREA NITROGEN 13 MG/DL (9-23); CALCIUM LEVEL 8.5 MG/DL (8.5-10.1); CARBON DIOXIDE LEVEL 28 MMOL/L (20-31); CHLORIDE LEVEL 107 MMOL/L (98-107); CREATININE FOR GFR 0.71 MG/DL (0.55-1.30); GLOMERULAR FILTRATION RATE > 60.0 (>51); GLUCOSE, FASTING 121 MG/DL (60-100); POTASSIUM SERUM 4.3 MMOL/L (3.5-5.1); SODIUM LEVEL 142 MMOL/L (136-145); TOTAL PROTEIN 6.4 G/DL (5.7-8.2)
[2024-06-20] MEDS: KETOROLAC 30 MG/ML 1ML VIAL IV ONE (14:47)
[2024-06-20] MEDS: ONDANSETRON 4MG 2ML VIAL IV ONE (14:47)
[2024-06-20] MEDS ORDERED: PERC5TAB12 PO (15:05)
[2024-06-20 15:48] VITALS: BP 130/78; TEMP 97; O2SAT 96
== END 2024-06-20 15:50 | disposition home or self-care (01) ==
LOC: EDBD 11:39 → M ED 11:39
DX: N13.30 Unspecified hydronephrosis (principal); R10.9 Unspecified abdominal pain; I10 Essential (primary) hypertension; Z88.5 Allergy status to narcotic agent; Z79.1 Long term (current) use of non-steroidal anti-inflammatories (NSAID); Z79.2 Long term (current) use of antibiotics; Z79.52 Long term (current) use of systemic steroids; Z79.899 Other long term (current) drug therapy; Z79.810 Long term (current) use of selective estrogen receptor modulators (SERMs)
CPT/HCPCS: 74176; 80048; 80076; 81001; 83690; 85025; 96374; 99284; J1885; J2405

== ENCOUNTER 2024-12-11 16:43 | Emergency (ER) | payer OTHER ==
[~2024-12-11] VITALS: Ht 160 cm; Wt 68.3 kg
[~2024-12-11 16:43] MED LIST changes: +LIDO1ADH93 TOP; -LIDO5DIS41 TOP; +PERC5TAB12 PO
[2024-12-11] MEDS: KETOROLAC 30 MG/ML 1 ML VIAL IM ONE (18:35)
[2024-12-11 18:50] LABS: BASO # 0.1 10^3/uL (0.0-0.2); BASO % 0.5 % (0.0-1.0); EOS # 0.2 10^3/uL (0.0-0.5); EOS % 1.5 % (0.0-3.0); LYMPH # 1.6 10^3/uL (1.5-5.0); LYMPH % 14.0 % (24.0-44.0); MONO # 0.8 10^3/uL (0.0-0.8); MONO % 6.9 % (2.0-8.0); NEUTROPHILS # 8.9 10^3/uL (1.5-8.5); NEUTROPHILS % 76.8 % (36.0-66.0); PLATELET COUNT, AUTOMATED 299 10^3/uL (150-450)
[2024-12-11 19:23] LABS: ALT/SGPT 16 U/L (7.0-40); AST/SGOT 17 U/L (<34); CALCIUM LEVEL 9.0 MG/DL (8.5-10.1); CARBON DIOXIDE LEVEL 28 MMOL/L (20-31); CHLORIDE LEVEL 107 MMOL/L (98-107); CREATININE FOR GFR 0.64 MG/DL (0.55-1.30); GLOMERULAR FILTRATION RATE > 90.0 (>51); POTASSIUM SERUM 4.6 MMOL/L (3.5-5.1); SODIUM LEVEL 143 MMOL/L (136-145)
[2024-12-11] MEDS ORDERED: KETO-204 PO (19:51)
[2024-12-11 19:52] VITALS: BP 130/88; TEMP 98.7; O2SAT 98
== END 2024-12-11 20:00 | disposition home or self-care (01) ==
LOC: M ED 16:43
DX: K40.90 Unilateral inguinal hernia, without obstruction or gangrene, not specified as recurrent (principal); J44.9 Chronic obstructive pulmonary disease, unspecified; F17.210 Nicotine dependence, cigarettes, uncomplicated; Z88.5 Allergy status to narcotic agent; Z79.2 Long term (current) use of antibiotics; Z79.1 Long term (current) use of non-steroidal anti-inflammatories (NSAID); Z79.899 Other long term (current) drug therapy; Z79.52 Long term (current) use of systemic steroids; Z79.810 Long term (current) use of selective estrogen receptor modulators (SERMs)
CPT/HCPCS: 76856; 80048; 80076; 83690; 85025; 96372; 99283; J1885

== ENCOUNTER → 2025-01-20 | Outpatient (REF) ==
[~2025-01-20] MED LIST changes: -IBUP-1022 PO; +IBUP600T42 PO; +KETO-204 PO
== END ==
LOC: M LAB 14:50
PROVIDERS: ATTEND Family Medicine
DX: Z02.89 Encounter for other administrative examinations (principal)